=== PATIENT | female | born 1940 | race African-American/Black ===

== ENCOUNTER 2017-08-26 15:45 | Inpatient (IN) | payer MEDICARE, BC ==
[~2017-08-26] VITALS: Ht 165.1 cm; Wt 72.1 kg
[2017-08-26] MEDS ORDERED: LISINOPRIL (15:47)
[2017-08-26] MEDS ORDERED: SODIUM CHLORIDE 0.9% 1,000 ML IV ONE (16:19)
[2017-08-26 16:59] LABS: BASOPHILS % 0.4 % (0.0-2.0); EOSINOPHILS % 0.1 % (0.0-5.0); HEMOGLOBIN. 13.1 g/dL (12.0-16.0); LYMPHOCYTES % 16.1 % (20.0-50.0); MEAN CORPUSCULAR HEMOGLOBIN 26.6 pg (28.0-32.0); MEAN PLATELET VOLUME 7.5 fl (7.4-10.4); MONOCYTES % 11.8 % (2.0-8.0); NEUTROPHILS % 71.6 % (40.0-76.0); PLATELET 362 x1000/uL (130-400); RED BLOOD CELL COUNT 4.93 mill/uL (4.2-5.4); RED CELL DISTRIBUTION WIDTH 16.3 % (11.6-14.6)
[2017-08-26 17:05] LABS: PARTIAL THROMBOPLASTIN TIME 21.5 sec (23.4-31.0); PROTHROMBIN TIME 10.7 sec (9.4-11.6)
[2017-08-26 17:32] LABS: CHLORIDE 108 mEq/L (98-107)
[2017-08-26 17:42] LABS: CREATINE KINASE MB FRACTION 2.2 ng/mL (0.5-3.6)
[2017-08-26] MEDS ORDERED: ASPIRIN 81MG TABLET PO ONE (18:00)
[2017-08-26] MEDS ORDERED: CLONIDINE 0.1MG TABLET PO ONE (19:15)
[2017-08-26 21:00] VITALS: BP 143/83
[2017-08-26] MEDS ORDERED: ACETAMINOPHEN 325MG TABLET PO PRN (21:15)
[2017-08-26] MEDS ORDERED: ONDANSETRON HCL 4MG/2ML VIAL IV PRN (21:15)
[2017-08-26] MEDS ORDERED: CLOP75TA33 PO (21:50)
[2017-08-26] MEDS ORDERED: BENA20TA3 PO (21:50)
[2017-08-26 21:58] VITALS: BP 143/83
[2017-08-26] MEDS: ENOXAPARIN 40MG/0.4ML SYR SUBCUT SCH (22:36)
[2017-08-27 00:25] VITALS: BP 175/95
[2017-08-27 04:00] VITALS: BP 157/83
[2017-08-27] MEDS: HYDROCODONE/ACETAMINOPHEN 5/325MG TABLET PO PRN ×3 (05:23→22:39)
[2017-08-27 06:20] LABS: BASOPHILS % 0.7 % (0.0-2.0); EOSINOPHILS % 1.6 % (0.0-5.0); HEMATOCRIT. 38.5 % (36.0-48.0); HEMOGLOBIN. 12.9 g/dL (12.0-16.0); LYMPHOCYTES % 23.3 % (20.0-50.0); MEAN CORPUSCULAR VOLUME 77.5 fL (81.0-99.0); MEAN PLATELET VOLUME 7.6 fl (7.4-10.4); MONOCYTES % 8.8 % (2.0-8.0); NEUTROPHILS % 65.6 % (40.0-76.0); PLATELET 330 x1000/uL (130-400); RED BLOOD CELL COUNT 4.97 mill/uL (4.2-5.4); RED CELL DISTRIBUTION WIDTH 16.2 % (11.6-14.6)
[2017-08-27 07:18] LABS: CHLORIDE 112 mEq/L (98-107)
[2017-08-27 08:00] VITALS: BP 148/85
[2017-08-27] MEDS ORDERED: POTASSIUM CHLORIDE INJ 40 MEQ in DEXT 5% WATER 500 ML IV ONE (08:15)
[2017-08-27] MEDS: BENAZEPRIL 20MG TABLET PO SCH (08:49)
[2017-08-27] MEDS: CLOPIDOGREL 75MG TABLET PO SCH (08:49)
[2017-08-27] MEDS ORDERED: BENAZEPRIL 20MG TABLET PO SCH (09:00)
[2017-08-27] MEDS: KCL 20MEQ/100ML PREMIX 100 ML IV SCH ×2 (10:16→14:38)
[2017-08-27 12:00] VITALS: BP 142/85
[2017-08-27 12:09] LABS: PHOSPHORUS 3.2 mg/dL (2.5-4.9)
[2017-08-27 16:00] VITALS: BP 154/96
[2017-08-27 20:00] VITALS: BP_SYST 137; BP_SYST 142; BP_SYST 151; BP_DIAS 80; BP_DIAS 83; BP_DIAS 94
[2017-08-27] MEDS: ENOXAPARIN 40MG/0.4ML SYR SUBCUT SCH (20:56)
[2017-08-28] VITALS: BP 158/90
[2017-08-28] MEDS: CLONIDINE 0.1MG TABLET PO PRN ×2 (00:35→11:36)
[2017-08-28 04:00] VITALS: BP 129/78
[2017-08-28] MEDS: SODIUM CHLORIDE 0.45% 1,000 ML IV SCH (09:52)
[2017-08-28] MEDS: CLOPIDOGREL 75MG TABLET PO SCH (09:52)
[2017-08-28] MEDS: BENAZEPRIL 20MG TABLET PO SCH (09:56)
[2017-08-28 12:00] VITALS: BP 169/97
[2017-08-28 13:05] LABS: BASOPHILS % 0.8 % (0.0-2.0); EOSINOPHILS % 4.5 % (0.0-5.0); HEMOGLOBIN. 12.4 g/dL (12.0-16.0); LYMPHOCYTES % 28.6 % (20.0-50.0); MEAN CORPUSCULAR HEMOGLOBIN 27.1 pg (28.0-32.0); MEAN CORPUSCULAR VOLUME 76.5 fL (81.0-99.0); MEAN PLATELET VOLUME 7.5 fl (7.4-10.4); MONOCYTES % 12.8 % (2.0-8.0); NEUTROPHILS % 53.3 % (40.0-76.0); PLATELET 330 x1000/uL (130-400); RED BLOOD CELL COUNT 4.58 mill/uL (4.2-5.4); RED CELL DISTRIBUTION WIDTH 16.4 % (11.6-14.6)
[2017-08-28 13:14] LABS: AMMONIA 11 uMol/L (<32)
[2017-08-28 13:45] LABS: CHLORIDE 111 mEq/L (98-107)
[2017-08-28 13:50] LABS: PHOSPHORUS 3.1 mg/dL (2.5-4.9)
[2017-08-28] MEDS: HYDROCODONE/ACETAMINOPHEN 5/325MG TABLET PO PRN (14:58)
[2017-08-28 16:00] VITALS: BP 160/82
[2017-08-28] MEDS ORDERED: POTASSIUM CHLORIDE 20MEQ/PACKET PO NR (18:45)
[2017-08-28 20:00] VITALS: BP 151/83
[2017-08-28] MEDS: ENOXAPARIN 40MG/0.4ML SYR SUBCUT SCH (22:25)
[2017-08-29] VITALS: BP 135/77
[2017-08-29] MEDS: SODIUM CHLORIDE 0.45% 1,000 ML IV SCH ×2 (00:54→18:46)
[2017-08-29 04:00] VITALS: BP_SYST 142; BP_SYST 164; BP_DIAS 76; BP_DIAS 91
[2017-08-29 06:01] LABS: BASOPHILS % 0.7 % (0.0-2.0); EOSINOPHILS % 5.5 % (0.0-5.0); HEMATOCRIT. 37.2 % (36.0-48.0); HEMOGLOBIN. 12.6 g/dL (12.0-16.0); MEAN CORPUSCULAR HEMOGLOBIN 26.2 pg (28.0-32.0); MEAN CORPUSCULAR VOLUME 77.1 fL (81.0-99.0); MEAN PLATELET VOLUME 7.7 fl (7.4-10.4); MONOCYTES % 12.9 % (2.0-8.0); NEUTROPHILS % 51.9 % (40.0-76.0); PLATELET 352 x1000/uL (130-400); RED BLOOD CELL COUNT 4.83 mill/uL (4.2-5.4); RED CELL DISTRIBUTION WIDTH 16.9 % (11.6-14.6)
[2017-08-29 06:35] LABS: CHLORIDE 110 mEq/L (98-107)
[2017-08-29 06:43] LABS: PHOSPHORUS 3.6 mg/dL (2.5-4.9)
[2017-08-29 08:00] VITALS: BP_SYST 150; BP_SYST 159; BP_DIAS 83; BP_DIAS 92
[2017-08-29] MEDS: ZINC SULFATE 220 MG ( 50 ) CAPSULE PO SCH (08:55)
[2017-08-29] MEDS: ASCORBIC ACID 250 MG TABLET PO SCH ×2 (08:55→18:46)
[2017-08-29] MEDS: MULTIVITAMINS,THER W-MINERALS TABLET PO SCH (08:56)
[2017-08-29] MEDS: CLOPIDOGREL 75MG TABLET PO SCH (08:56)
[2017-08-29] MEDS: BENAZEPRIL 20MG TABLET PO SCH (08:58)
[2017-08-29] MEDS: HYDROCODONE/ACETAMINOPHEN 5/325MG TABLET PO PRN ×2 (08:59→23:51)
[2017-08-29] MEDS ORDERED: ZINC SULFATE 220 MG ( 50 ) CAPSULE PO SCH (09:00)
[2017-08-29] MEDS ORDERED: MULTIVITAMINS,THER W-MINERALS TABLET PO SCH (09:00)
[2017-08-29] MEDS: POTASSIUM CHLORIDE 20MEQ/PACKET PO SCH (10:51)
[2017-08-29 12:00] VITALS: BP_SYST 144; BP_SYST 152; BP_DIAS 76; BP_DIAS 77
[2017-08-29 16:00] VITALS: BP_SYST 150; BP_SYST 155; BP_DIAS 100; BP_DIAS 93
[2017-08-29 20:00] VITALS: BP 153/90
[2017-08-29] MEDS: ENOXAPARIN 40MG/0.4ML SYR SUBCUT SCH (20:21)
[2017-08-29 21:21] LABS: KETONES URINE NEGATIVE (NEGATIVE); LEUKOCYTE ESTERASE URINE 1+ (NEGATIVE); NITRITE URINE NEGATIVE (NEGATIVE); OCCULT BLOOD URINE 3+ (NEGATIVE); PROTEIN URINE NEGATIVE (NEGATIVE); SPECIFIC GRAVITY URINE 1.007 (1.005-1.030); UROBILINOGEN URINE 0.2 E.U./dL (0.2-1.0)
[2017-08-29 21:24] LABS: CLARITY URINE SLIGHTLY HAZY (CLEAR); COLOR URINE YELLOW (YELLOW)
[2017-08-29] MEDS: CLONIDINE 0.1MG TABLET PO PRN (23:50)
[2017-08-30] VITALS: BP_SYST 176; BP_SYST 179; BP_DIAS 106; BP_DIAS 94
[2017-08-30] MEDS: CLONIDINE 0.1MG TABLET PO PRN ×2 (06:28→12:34)
[2017-08-30 06:34] LABS: BASOPHILS % 0.8 % (0.0-2.0); EOSINOPHILS % 4.4 % (0.0-5.0); HEMATOCRIT. 36.1 % (36.0-48.0); HEMOGLOBIN. 12.5 g/dL (12.0-16.0); LYMPHOCYTES % 35.3 % (20.0-50.0); MEAN CORPUSCULAR HEMOGLOBIN 26.8 pg (28.0-32.0); MEAN CORPUSCULAR VOLUME 77.3 fL (81.0-99.0); MEAN PLATELET VOLUME 7.8 fl (7.4-10.4); NEUTROPHILS % 45.5 % (40.0-76.0); PLATELET 322 x1000/uL (130-400); RED BLOOD CELL COUNT 4.67 mill/uL (4.2-5.4); RED CELL DISTRIBUTION WIDTH 16.1 % (11.6-14.6)
[2017-08-30 08:00] VITALS: BP 147/97
[2017-08-30] MEDS: MULTIVITAMINS,THER W-MINERALS TABLET PO SCH (08:13)
[2017-08-30] MEDS: POTASSIUM CHLORIDE 20MEQ/PACKET PO SCH (08:13)
[2017-08-30] MEDS: ASCORBIC ACID 250 MG TABLET PO SCH ×2 (08:13→17:11)
[2017-08-30] MEDS: BENAZEPRIL 20MG TABLET PO SCH (08:13)
[2017-08-30] MEDS: ZINC SULFATE 220 MG ( 50 ) CAPSULE PO SCH (08:13)
[2017-08-30] MEDS: CLOPIDOGREL 75MG TABLET PO SCH (08:13)
[2017-08-30] MEDS ORDERED: LACTULOSE 20G/30ML UDC PO SCH (08:30)
[2017-08-30] MEDS ORDERED: BISACODYL 5MG TABLET PO SCH (08:30)
[2017-08-30 08:36] LABS: CHLORIDE 111 mEq/L (98-107)
[2017-08-30 08:51] LABS: PHOSPHORUS 3.9 mg/dL (2.5-4.9)
[2017-08-30 12:00] VITALS: BP_SYST 141; BP_SYST 163; BP_SYST 172; BP_DIAS 91; BP_DIAS 94; BP_DIAS 97
[2017-08-30] MEDS: HYDROCODONE/ACETAMINOPHEN 5/325MG TABLET PO PRN (12:46)
[2017-08-30 16:00] VITALS: BP 127/73
[2017-08-30 20:00] VITALS: BP 157/88
[2017-08-30] MEDS: ATORVASTATIN CALCIUM 40MG TABLET PO SCH (21:01)
[2017-08-30] MEDS: ENOXAPARIN 40MG/0.4ML SYR SUBCUT SCH (21:02)
[2017-08-31] VITALS (7 sets, daily range): BP systolic 111–171; BP diastolic 72–105
[2017-08-31] MEDS: CLONIDINE 0.1MG TABLET PO PRN (00:36)
[2017-08-31 07:13] LABS: BASOPHILS % 0.6 % (0.0-2.0); EOSINOPHILS % 1.6 % (0.0-5.0); HEMATOCRIT. 34.7 % (36.0-48.0); MEAN CORPUSCULAR HEMOGLOBIN 26.5 pg (28.0-32.0); MEAN CORPUSCULAR VOLUME 76.4 fL (81.0-99.0); MEAN PLATELET VOLUME 7.8 fl (7.4-10.4); MONOCYTES % 11.4 % (2.0-8.0); NEUTROPHILS % 64.4 % (40.0-76.0); PLATELET 339 x1000/uL (130-400); RED BLOOD CELL COUNT 4.54 mill/uL (4.2-5.4); RED CELL DISTRIBUTION WIDTH 16.5 % (11.6-14.6)
[2017-08-31 07:31] LABS: CHLORIDE 111 mEq/L (98-107)
[2017-08-31 07:47] LABS: LDL CHOLESTEROL 96 mg/dL (5-100)
[2017-08-31 07:49] LABS: HDL CHOLESTEROL 67 mg/dL (40-59)
[2017-08-31] MEDS: POTASSIUM CHLORIDE 20MEQ/PACKET PO SCH (08:36)
[2017-08-31] MEDS: CLOPIDOGREL 75MG TABLET PO SCH (08:36)
[2017-08-31] MEDS: ASCORBIC ACID 250 MG TABLET PO SCH ×2 (08:36→17:17)
[2017-08-31] MEDS: ZINC SULFATE 220 MG ( 50 ) CAPSULE PO SCH (08:36)
[2017-08-31] MEDS: BENAZEPRIL 20MG TABLET PO SCH (08:37)
[2017-08-31] MEDS: MULTIVITAMINS,THER W-MINERALS TABLET PO SCH (08:37)
[2017-08-31] MEDS ORDERED: CLOPIDOGREL 75MG TABLET PO SCH (09:00)
[2017-08-31] MEDS: LEVOFLOXACIN 250MG PREMIX 50 ML IV SCH (10:29)
[2017-08-31] MEDS ORDERED: MAGNESIUM 2 G PREMIX 50 ML IV SCH (11:00)
[2017-08-31] MEDS: ATORVASTATIN CALCIUM 40MG TABLET PO SCH (22:21)
[2017-08-31] MEDS: ENOXAPARIN 40MG/0.4ML SYR SUBCUT SCH (22:21)
[2017-09-01] VITALS: BP 133/74
[2017-09-01 04:00] VITALS: BP 140/81
[2017-09-01 08:00] VITALS: BP 146/94
[2017-09-01 10:01] LABS: BASOPHILS % 0.6 % (0.0-2.0); EOSINOPHILS % 5.3 % (0.0-5.0); HEMATOCRIT. 37.2 % (36.0-48.0); HEMOGLOBIN. 12.6 g/dL (12.0-16.0); LYMPHOCYTES % 22.9 % (20.0-50.0); MEAN CORPUSCULAR HEMOGLOBIN 26.3 pg (28.0-32.0); MEAN CORPUSCULAR VOLUME 77.3 fL (81.0-99.0); MONOCYTES % 11.8 % (2.0-8.0); NEUTROPHILS % 59.4 % (40.0-76.0); PLATELET 337 x1000/uL (130-400)
[2017-09-01] MEDS: BENAZEPRIL 20MG TABLET PO SCH (10:15)
[2017-09-01] MEDS: ASCORBIC ACID 250 MG TABLET PO SCH (10:15)
[2017-09-01] MEDS: ZINC SULFATE 220 MG ( 50 ) CAPSULE PO SCH (10:15)
[2017-09-01] MEDS: MULTIVITAMINS,THER W-MINERALS TABLET PO SCH (10:22)
[2017-09-01] MEDS: CLOPIDOGREL 75MG TABLET PO SCH (10:22)
[2017-09-01 10:23] LABS: CHLORIDE 112 mEq/L (98-107)
[2017-09-01] MEDS: POTASSIUM CHLORIDE 20MEQ/PACKET PO SCH (10:23)
[2017-09-01 10:30] LABS: PHOSPHORUS 3.2 mg/dL (2.5-4.9)
[2017-09-01] MEDS: LEVOFLOXACIN 250MG PREMIX 50 ML IV SCH (11:39)
[2017-09-01 12:00] VITALS: BP_SYST 132; BP_SYST 133; BP_SYST 143; BP_DIAS 100; BP_DIAS 84
[2017-09-01 16:51] VITALS: BP 159/93
[2017-09-02] MEDS ORDERED: LEVOFLOXACIN 250MG TABLET PO SCH (11:00)
== END 2017-09-01 17:45 | DRG 65 ==
LOC: ER 15:45 → OBSVTOIN 17:57 → 6WST 17:57 → ENRESERV 19:13 → 6WST 21:55 → 5WST 08-28 07:25
PROVIDERS: ADMIT Internal Medicine Nephrology; ATTEND Internal Medicine Nephrology
PROC: 4A00X4Z Measurement of Central Nervous Electrical Activity, External Approach (ICD-10-PCS; principal; 2017-08-30)
DX: I63.9 Cerebral infarction, unspecified (principal); E87.0 Hyperosmolality and hypernatremia; G40.909 Epilepsy, unspecified, not intractable, without status epilepticus; B69.0 Cysticercosis of central nervous system; N39.0 Urinary tract infection, site not specified; S22.32XA Fracture of one rib, left side, initial encounter for closed fracture; W19.XXXA Unspecified fall, initial encounter; E87.6 Hypokalemia; I10 Essential (primary) hypertension; B96.20 Unspecified Escherichia coli [E. coli] as the cause of diseases classified elsewhere; K59.00 Constipation, unspecified; R35.1 Nocturia; B95.2 Enterococcus as the cause of diseases classified elsewhere; J45.909 Unspecified asthma, uncomplicated; R27.0 Ataxia, unspecified; H93.90 Unspecified disorder of ear, unspecified ear; F45.41 Pain disorder exclusively related to psychological factors; J32.9 Chronic sinusitis, unspecified; E78.5 Hyperlipidemia, unspecified; F17.210 Nicotine dependence, cigarettes, uncomplicated; Z88.0 Allergy status to penicillin; Z82.49 Family history of ischemic heart disease and other diseases of the circulatory system; Y92.091 Bathroom in other non-institutional residence as the place of occurrence of the external cause; Z86.73 Personal history of transient ischemic attack (TIA), and cerebral infarction without residual deficits; Z79.02 Long term (current) use of antithrombotics/antiplatelets; Z79.899 Other long term (current) drug therapy; Y93.89 Activity, other specified; Y99.8 Other external cause status
CPT/HCPCS: 36415; 70450; 70551; 71045; 71111; 72110; 80048; 80053; 80061; 81003; 82140; 82553; 83735; 83930; 83935; 84100; 84132; 84133; 84443; 84484; 85025; 85379; 85610; 85730; 87040; 87077; 87086; 87186; 92610; 93005; 93306; 93880; 93970; 97112; 97163; 97166; 97530; C1893; J1650; J1956; J3475; J3480; J7030; J7040; J7050; A4315

== ENCOUNTER 2017-09-01 18:01 | Inpatient (IN) | payer MEDICARE, BC ==
[~2017-09-01] VITALS: Ht 165.1 cm; Wt 71.7 kg
[2017-09-01 18:00] VITALS: BP 158/96
[~2017-09-01 18:01] MED LIST: BENA20TA3 PO; CLOP75TA33 PO
[2017-09-01] MEDS ORDERED: BISACODYL 10MG SUPP PR PRN (18:30)
[2017-09-01] MEDS ORDERED: NA PHOS,M-B/NA PHOS,DI-BA ENEMA 118ML PR PRN (18:30)
[2017-09-01] MEDS ORDERED: DOCUSATE SODIUM 100MG CAPSULE PO SCH (18:30)
[2017-09-01] MEDS ORDERED: ONDANSETRON HCL 4MG TABLET PO PRN (18:45)
[2017-09-01 20:00] VITALS: BP 147/76
[2017-09-01] MEDS: ATORVASTATIN CALCIUM 40MG TABLET PO SCH (22:04)
[2017-09-01] MEDS: ENOXAPARIN 40MG/0.4ML SYR SUBCUT SCH (22:04)
[2017-09-01] MEDS: DOCUSATE SODIUM 100MG CAPSULE PO SCH (22:04)
[2017-09-02 06:48] LABS: HEMATOCRIT. 36.8 % (36.0-48.0); HEMOGLOBIN. 12.7 g/dL (12.0-16.0); MEAN CORPUSCULAR HEMOGLOBIN 26.1 pg (28.0-32.0); MEAN CORPUSCULAR VOLUME 75.8 fL (81.0-99.0); MEAN PLATELET VOLUME 7.7 fl (7.4-10.4); PLATELET 365 x1000/uL (130-400); RED BLOOD CELL COUNT 4.86 mill/uL (4.2-5.4); RED CELL DISTRIBUTION WIDTH 16.3 % (11.6-14.6)
[2017-09-02 07:14] LABS: CHLORIDE 113 mEq/L (98-107)
[2017-09-02 08:00] VITALS: BP 131/94
[2017-09-02 09:46] LABS: ATYPICAL LYMPHOCYTES 1; PLATELET ESTIMATE NORMAL
[2017-09-02] MEDS: DOCUSATE SODIUM 100MG CAPSULE PO SCH ×2 (09:49→16:53)
[2017-09-02] MEDS: MULTIVITAMINS,THER W-MINERALS TABLET PO SCH (09:49)
[2017-09-02] MEDS: ZINC SULFATE 220 MG ( 50 ) CAPSULE PO SCH (09:49)
[2017-09-02] MEDS: NITROFURANTOIN 100MG M/M CAPSULE PO SCH ×2 (09:49→21:02)
[2017-09-02] MEDS: CLOPIDOGREL 75MG TABLET PO SCH (09:50)
[2017-09-02] MEDS: BENAZEPRIL 20MG TABLET PO SCH (09:50)
[2017-09-02] MEDS: ASCORBIC ACID 250 MG TABLET PO SCH ×2 (09:50→16:53)
[2017-09-02] MEDS: POTASSIUM CHLORIDE 20MEQ/PACKET PO SCH (09:51)
[2017-09-02] MEDS ORDERED: LEVOFLOXACIN 250MG TABLET PO SCH (11:00)
[2017-09-02] MEDS: ACETAMINOPHEN 325MG TABLET PO PRN (11:53)
[2017-09-02 20:00] VITALS: BP_SYST 140; BP_SYST 146; BP_SYST 151; BP_DIAS 102; BP_DIAS 78; BP_DIAS 88
[2017-09-02] MEDS: ENOXAPARIN 40MG/0.4ML SYR SUBCUT SCH (21:02)
[2017-09-02] MEDS: ATORVASTATIN CALCIUM 40MG TABLET PO SCH (21:02)
[2017-09-03] MEDS: DOCUSATE SODIUM 100MG CAPSULE PO SCH ×2 (08:19→17:12)
[2017-09-03] MEDS: POTASSIUM CHLORIDE 20MEQ/PACKET PO SCH (08:22)
[2017-09-03] MEDS: ASCORBIC ACID 250 MG TABLET PO SCH ×2 (08:23→17:12)
[2017-09-03] MEDS: ZINC SULFATE 220 MG ( 50 ) CAPSULE PO SCH (08:23)
[2017-09-03] MEDS: BENAZEPRIL 20MG TABLET PO SCH ×2 (08:24→21:28)
[2017-09-03] MEDS: NITROFURANTOIN 100MG M/M CAPSULE PO SCH ×2 (08:24→21:28)
[2017-09-03] MEDS: CLOPIDOGREL 75MG TABLET PO SCH (08:24)
[2017-09-03] MEDS: MULTIVITAMINS,THER W-MINERALS TABLET PO SCH (08:24)
[2017-09-03 08:31] VITALS: BP 163/98
[2017-09-03 20:00] VITALS: BP_SYST 140; BP_SYST 144; BP_SYST 166; BP_DIAS 80; BP_DIAS 82; BP_DIAS 89
[2017-09-03] MEDS: ATORVASTATIN CALCIUM 40MG TABLET PO SCH (21:27)
[2017-09-03] MEDS: ENOXAPARIN 40MG/0.4ML SYR SUBCUT SCH (21:29)
[2017-09-04 07:00] LABS: BASOPHILS % 0.6 % (0.0-2.0); EOSINOPHILS % 4.1 % (0.0-5.0); HEMATOCRIT. 35.4 % (36.0-48.0); HEMOGLOBIN. 12.3 g/dL (12.0-16.0); MEAN CORPUSCULAR HEMOGLOBIN 26.5 pg (28.0-32.0); MEAN PLATELET VOLUME 7.6 fl (7.4-10.4); MONOCYTES % 14.2 % (2.0-8.0); NEUTROPHILS % 46.1 % (40.0-76.0); PLATELET 376 x1000/uL (130-400); RED BLOOD CELL COUNT 4.65 mill/uL (4.2-5.4); RED CELL DISTRIBUTION WIDTH 16.1 % (11.6-14.6)
[2017-09-04 07:45] VITALS: BP 138/84
[2017-09-04] MEDS ORDERED: POTASSIUM CHLORIDE 20MEQ/PACKET PO NR (08:30)
[2017-09-04 09:00] VITALS: BP_SYST 140; BP_SYST 146; BP_DIAS 100; BP_DIAS 94
[2017-09-04] MEDS: DOCUSATE SODIUM 100MG CAPSULE PO SCH ×2 (09:33→16:20)
[2017-09-04] MEDS: NITROFURANTOIN 100MG M/M CAPSULE PO SCH ×2 (09:33→22:21)
[2017-09-04] MEDS: ZINC SULFATE 220 MG ( 50 ) CAPSULE PO SCH (09:34)
[2017-09-04] MEDS: BENAZEPRIL 20MG TABLET PO SCH ×2 (09:34→22:21)
[2017-09-04] MEDS: MULTIVITAMINS,THER W-MINERALS TABLET PO SCH (09:34)
[2017-09-04] MEDS: CLOPIDOGREL 75MG TABLET PO SCH (09:34)
[2017-09-04] MEDS: ASCORBIC ACID 250 MG TABLET PO SCH ×2 (09:34→16:20)
[2017-09-04] MEDS: POTASSIUM CHLORIDE 20MEQ/PACKET PO SCH (09:48)
[2017-09-04 15:30] VITALS: BP_SYST 136; BP_SYST 141; BP_SYST 164; BP_DIAS 87; BP_DIAS 96; BP_DIAS 97
[2017-09-04] MEDS: CLONIDINE 0.1MG TABLET PO PRN (16:20)
[2017-09-04 18:30] VITALS: BP_SYST 150; BP_SYST 151; BP_SYST 152; BP_DIAS 85; BP_DIAS 93; BP_DIAS 98
[2017-09-04] MEDS: ATORVASTATIN CALCIUM 40MG TABLET PO SCH (22:21)
[2017-09-04] MEDS: ENOXAPARIN 40MG/0.4ML SYR SUBCUT SCH (22:21)
[2017-09-05 06:33] LABS: BASOPHILS % 0.8 % (0.0-2.0); EOSINOPHILS % 3.4 % (0.0-5.0); HEMATOCRIT. 35.2 % (36.0-48.0); HEMOGLOBIN. 12.1 g/dL (12.0-16.0); MEAN CORPUSCULAR HEMOGLOBIN 26.2 pg (28.0-32.0); MEAN CORPUSCULAR VOLUME 76.4 fL (81.0-99.0); MEAN PLATELET VOLUME 7.4 fl (7.4-10.4); MONOCYTES % 14.7 % (2.0-8.0); NEUTROPHILS % 49.1 % (40.0-76.0); PLATELET 375 x1000/uL (130-400); RED BLOOD CELL COUNT 4.61 mill/uL (4.2-5.4); RED CELL DISTRIBUTION WIDTH 16.5 % (11.6-14.6)
[2017-09-05 07:22] LABS: CHLORIDE 113 mEq/L (98-107)
[2017-09-05 08:00] VITALS: BP 143/86
[2017-09-05] MEDS: MULTIVITAMINS,THER W-MINERALS TABLET PO SCH (08:56)
[2017-09-05] MEDS: ASCORBIC ACID 250 MG TABLET PO SCH ×2 (08:56→18:00)
[2017-09-05] MEDS: NITROFURANTOIN 100MG M/M CAPSULE PO SCH ×2 (08:56→22:20)
[2017-09-05] MEDS: DOCUSATE SODIUM 100MG CAPSULE PO SCH ×2 (08:56→18:00)
[2017-09-05] MEDS: POTASSIUM CHLORIDE 20MEQ/PACKET PO SCH (08:57)
[2017-09-05] MEDS: BENAZEPRIL 20MG TABLET PO SCH ×2 (08:57→22:21)
[2017-09-05] MEDS: CLOPIDOGREL 75MG TABLET PO SCH (08:57)
[2017-09-05] MEDS: ZINC SULFATE 220 MG ( 50 ) CAPSULE PO SCH (08:57)
[2017-09-05 20:00] VITALS: BP 121/85
[2017-09-05] MEDS: ENOXAPARIN 40MG/0.4ML SYR SUBCUT SCH (22:21)
[2017-09-05] MEDS: ATORVASTATIN CALCIUM 40MG TABLET PO SCH (22:21)
[2017-09-06 06:42] LABS: BASOPHILS % 0.6 % (0.0-2.0); EOSINOPHILS % 4.3 % (0.0-5.0); HEMATOCRIT. 35.6 % (36.0-48.0); HEMOGLOBIN. 12.3 g/dL (12.0-16.0); LYMPHOCYTES % 36.2 % (20.0-50.0); MEAN CORPUSCULAR HEMOGLOBIN 26.4 pg (28.0-32.0); MEAN CORPUSCULAR VOLUME 76.3 fL (81.0-99.0); MEAN PLATELET VOLUME 7.7 fl (7.4-10.4); MONOCYTES % 14.1 % (2.0-8.0); NEUTROPHILS % 44.8 % (40.0-76.0); PLATELET 384 x1000/uL (130-400); RED BLOOD CELL COUNT 4.66 mill/uL (4.2-5.4); RED CELL DISTRIBUTION WIDTH 16.3 % (11.6-14.6)
[2017-09-06 08:00] VITALS: BP 134/81
[2017-09-06] MEDS: NITROFURANTOIN 100MG M/M CAPSULE PO SCH ×2 (10:03→21:15)
[2017-09-06] MEDS: ASCORBIC ACID 250 MG TABLET PO SCH ×2 (10:03→18:11)
[2017-09-06] MEDS: BENAZEPRIL 20MG TABLET PO SCH ×2 (10:04→21:16)
[2017-09-06] MEDS: ZINC SULFATE 220 MG ( 50 ) CAPSULE PO SCH (10:04)
[2017-09-06] MEDS: MULTIVITAMINS,THER W-MINERALS TABLET PO SCH (10:04)
[2017-09-06] MEDS: POTASSIUM CHLORIDE 20MEQ/PACKET PO SCH (10:05)
[2017-09-06] MEDS: DOCUSATE SODIUM 100MG CAPSULE PO SCH ×2 (10:05→18:11)
[2017-09-06] MEDS: CLOPIDOGREL 75MG TABLET PO SCH (10:05)
[2017-09-06 20:00] VITALS: BP 164/86
[2017-09-06 20:45] VITALS: BP 149/88
[2017-09-06] MEDS: ATORVASTATIN CALCIUM 40MG TABLET PO SCH (21:15)
[2017-09-06] MEDS: ENOXAPARIN 40MG/0.4ML SYR SUBCUT SCH (21:16)
[2017-09-07 08:22] VITALS: BP 152/87
[2017-09-07] MEDS: ZINC SULFATE 220 MG ( 50 ) CAPSULE PO SCH (09:00)
[2017-09-07] MEDS: DOCUSATE SODIUM 100MG CAPSULE PO SCH ×2 (10:44→17:00)
[2017-09-07] MEDS: AMLODIPINE 2.5MG TABLET PO SCH (10:44)
[2017-09-07] MEDS: MULTIVITAMINS,THER W-MINERALS TABLET PO SCH (10:45)
[2017-09-07] MEDS: NITROFURANTOIN 100MG M/M CAPSULE PO SCH ×2 (10:45→22:10)
[2017-09-07] MEDS: BENAZEPRIL 20MG TABLET PO SCH ×2 (10:46→22:10)
[2017-09-07] MEDS: CLOPIDOGREL 75MG TABLET PO SCH (10:46)
[2017-09-07] MEDS: ASCORBIC ACID 250 MG TABLET PO SCH ×2 (10:46→18:25)
[2017-09-07] MEDS: POTASSIUM CHLORIDE 20MEQ/PACKET PO SCH (10:47)
[2017-09-07 20:00] VITALS: BP 157/93
[2017-09-07] MEDS: ATORVASTATIN CALCIUM 40MG TABLET PO SCH (22:09)
[2017-09-07] MEDS: ENOXAPARIN 40MG/0.4ML SYR SUBCUT SCH (22:10)
[2017-09-07] MEDS: ACETAMINOPHEN 325MG TABLET PO PRN (22:49)
[2017-09-08 08:00] VITALS: BP 146/88
[2017-09-08 08:08] LABS: CHLORIDE 108 mEq/L (98-107)
[2017-09-08] MEDS: DOCUSATE SODIUM 100MG CAPSULE PO SCH ×2 (10:27→19:01)
[2017-09-08] MEDS: POTASSIUM CHLORIDE 20MEQ/PACKET PO SCH (10:28)
[2017-09-08] MEDS: ZINC SULFATE 220 MG ( 50 ) CAPSULE PO SCH (10:30)
[2017-09-08] MEDS: ASCORBIC ACID 250 MG TABLET PO SCH ×2 (10:30→19:01)
[2017-09-08] MEDS: CLOPIDOGREL 75MG TABLET PO SCH (10:30)
[2017-09-08] MEDS: MULTIVITAMINS,THER W-MINERALS TABLET PO SCH (10:31)
[2017-09-08] MEDS: BENAZEPRIL 20MG TABLET PO SCH ×2 (10:31→22:14)
[2017-09-08] MEDS: NITROFURANTOIN 100MG M/M CAPSULE PO SCH ×2 (10:31→22:15)
[2017-09-08] MEDS: AMLODIPINE 2.5MG TABLET PO SCH (10:32)
[2017-09-08 13:21] LABS: EOSINOPHILS % 2.4 % (0.0-5.0); HEMATOCRIT. 37.4 % (36.0-48.0); HEMOGLOBIN. 12.9 g/dL (12.0-16.0); LYMPHOCYTES % 35.1 % (20.0-50.0); MEAN CORPUSCULAR HEMOGLOBIN 26.1 pg (28.0-32.0); MEAN CORPUSCULAR VOLUME 75.8 fL (81.0-99.0); MEAN PLATELET VOLUME 7.1 fl (7.4-10.4); MONOCYTES % 13.6 % (2.0-8.0); NEUTROPHILS % 47.9 % (40.0-76.0); PLATELET 405 x1000/uL (130-400); RED BLOOD CELL COUNT 4.94 mill/uL (4.2-5.4)
[2017-09-08 20:00] VITALS: BP 152/94
[2017-09-08] MEDS: ATORVASTATIN CALCIUM 40MG TABLET PO SCH (22:14)
[2017-09-08] MEDS: ENOXAPARIN 40MG/0.4ML SYR SUBCUT SCH (22:16)
[2017-09-09 08:00] VITALS: BP 165/83
[2017-09-09] MEDS: CLONIDINE 0.1MG TABLET PO PRN (09:10)
[2017-09-09] MEDS: ZINC SULFATE 220 MG ( 50 ) CAPSULE PO SCH (09:10)
[2017-09-09] MEDS: MULTIVITAMINS,THER W-MINERALS TABLET PO SCH (09:10)
[2017-09-09] MEDS: NITROFURANTOIN 100MG M/M CAPSULE PO SCH (09:10)
[2017-09-09] MEDS: CLOPIDOGREL 75MG TABLET PO SCH (09:10)
[2017-09-09] MEDS: DOCUSATE SODIUM 100MG CAPSULE PO SCH ×2 (09:10→17:57)
[2017-09-09] MEDS: POTASSIUM CHLORIDE 20MEQ/PACKET PO SCH (09:11)
[2017-09-09] MEDS: AMLODIPINE 2.5MG TABLET PO SCH ×2 (09:11→20:58)
[2017-09-09] MEDS: ASCORBIC ACID 250 MG TABLET PO SCH ×2 (09:11→17:57)
[2017-09-09] MEDS: BENAZEPRIL 20MG TABLET PO SCH ×2 (09:15→21:07)
[2017-09-09 20:00] VITALS: BP 140/89
[2017-09-09] MEDS: ATORVASTATIN CALCIUM 40MG TABLET PO SCH (20:57)
[2017-09-09] MEDS: ENOXAPARIN 40MG/0.4ML SYR SUBCUT SCH (20:57)
[2017-09-10 08:00] VITALS: BP 124/68
[2017-09-10] MEDS: BENAZEPRIL 20MG TABLET PO SCH ×2 (09:00→21:00)
[2017-09-10] MEDS: CLOPIDOGREL 75MG TABLET PO SCH (09:35)
[2017-09-10] MEDS: ASCORBIC ACID 250 MG TABLET PO SCH ×2 (09:35→17:40)
[2017-09-10] MEDS: DOCUSATE SODIUM 100MG CAPSULE PO SCH ×2 (09:35→17:40)
[2017-09-10] MEDS: POTASSIUM CHLORIDE 20MEQ/PACKET PO SCH (09:35)
[2017-09-10] MEDS: ZINC SULFATE 220 MG ( 50 ) CAPSULE PO SCH (09:35)
[2017-09-10] MEDS: MULTIVITAMINS,THER W-MINERALS TABLET PO SCH (09:35)
[2017-09-10] MEDS: AMLODIPINE 2.5MG TABLET PO SCH ×2 (09:39→21:24)
[2017-09-10 20:00] VITALS: BP 124/79
[2017-09-10] MEDS: ATORVASTATIN CALCIUM 40MG TABLET PO SCH (21:25)
[2017-09-10] MEDS: ENOXAPARIN 40MG/0.4ML SYR SUBCUT SCH (21:26)
[2017-09-11 06:59] LABS: CHLORIDE 108 mEq/L (98-107)
[2017-09-11 07:47] LABS: BASOPHILS % 0.8 % (0.0-2.0); EOSINOPHILS % 2.8 % (0.0-5.0); HEMATOCRIT. 34.8 % (36.0-48.0); HEMOGLOBIN. 12.1 g/dL (12.0-16.0); LYMPHOCYTES % 38.4 % (20.0-50.0); MEAN CORPUSCULAR HEMOGLOBIN 26.3 pg (28.0-32.0); MEAN CORPUSCULAR VOLUME 75.7 fL (81.0-99.0); MEAN PLATELET VOLUME 7.9 fl (7.4-10.4); PLATELET 368 x1000/uL (130-400); RED BLOOD CELL COUNT 4.59 mill/uL (4.2-5.4); RED CELL DISTRIBUTION WIDTH 16.2 % (11.6-14.6)
[2017-09-11 08:00] VITALS: BP 125/79
[2017-09-11] MEDS: BENAZEPRIL 20MG TABLET PO SCH ×2 (09:00→21:00)
[2017-09-11] MEDS: MULTIVITAMINS,THER W-MINERALS TABLET PO SCH (09:20)
[2017-09-11] MEDS: CLOPIDOGREL 75MG TABLET PO SCH (09:20)
[2017-09-11] MEDS: POTASSIUM CHLORIDE 20MEQ/PACKET PO SCH (09:20)
[2017-09-11] MEDS: ZINC SULFATE 220 MG ( 50 ) CAPSULE PO SCH (09:20)
[2017-09-11] MEDS: ASCORBIC ACID 250 MG TABLET PO SCH ×2 (09:23→18:28)
[2017-09-11] MEDS: AMLODIPINE 2.5MG TABLET PO SCH ×2 (09:24→21:57)
[2017-09-11] MEDS: DOCUSATE SODIUM 100MG CAPSULE PO SCH ×2 (09:26→18:28)
[2017-09-11] MEDS ORDERED: LACTULOSE 20G/30ML UDC PO PRN (18:15)
[2017-09-11 20:00] VITALS: BP 124/75
[2017-09-11] MEDS: ATORVASTATIN CALCIUM 40MG TABLET PO SCH (21:54)
[2017-09-11] MEDS: ENOXAPARIN 40MG/0.4ML SYR SUBCUT SCH (21:55)
[2017-09-12 08:00] VITALS: BP 149/87
[2017-09-12] MEDS: DOCUSATE SODIUM 100MG CAPSULE PO SCH ×2 (09:00→18:19)
[2017-09-12] MEDS: ASCORBIC ACID 250 MG TABLET PO SCH ×2 (09:00→18:19)
[2017-09-12] MEDS: ZINC SULFATE 220 MG ( 50 ) CAPSULE PO SCH (09:00)
[2017-09-12] MEDS: AMLODIPINE 2.5MG TABLET PO SCH ×2 (09:03→21:16)
[2017-09-12] MEDS: CLOPIDOGREL 75MG TABLET PO SCH (09:04)
[2017-09-12] MEDS: MULTIVITAMINS,THER W-MINERALS TABLET PO SCH (09:04)
[2017-09-12] MEDS: BENAZEPRIL 20MG TABLET PO SCH ×2 (09:04→21:16)
[2017-09-12] MEDS: POTASSIUM CHLORIDE 20MEQ TABLET SR PO SCH (09:11)
[2017-09-12 20:00] VITALS: BP 133/73
[2017-09-12] MEDS: ENOXAPARIN 40MG/0.4ML SYR SUBCUT SCH (21:16)
[2017-09-12] MEDS: ATORVASTATIN CALCIUM 40MG TABLET PO SCH (21:16)
[2017-09-13 08:16] VITALS: BP 164/88
[2017-09-13] MEDS: POTASSIUM CHLORIDE 20MEQ TABLET SR PO SCH (09:24)
[2017-09-13] MEDS: MULTIVITAMINS,THER W-MINERALS TABLET PO SCH (09:25)
[2017-09-13] MEDS: DOCUSATE SODIUM 100MG CAPSULE PO SCH ×2 (09:25→17:39)
[2017-09-13] MEDS: CLOPIDOGREL 75MG TABLET PO SCH (09:25)
[2017-09-13] MEDS: CLONIDINE 0.1MG TABLET PO PRN (09:25)
[2017-09-13] MEDS: ZINC SULFATE 220 MG ( 50 ) CAPSULE PO SCH (09:25)
[2017-09-13] MEDS: ASCORBIC ACID 250 MG TABLET PO SCH ×2 (09:26→17:39)
[2017-09-13] MEDS: BENAZEPRIL 20MG TABLET PO SCH ×2 (09:26→21:01)
[2017-09-13] MEDS: AMLODIPINE 2.5MG TABLET PO SCH (09:26)
[2017-09-13 20:00] VITALS: BP 132/80
[2017-09-13] MEDS: ATORVASTATIN CALCIUM 40MG TABLET PO SCH (21:00)
[2017-09-13] MEDS: ENOXAPARIN 40MG/0.4ML SYR SUBCUT SCH (21:01)
[2017-09-13] MEDS: AMLODIPINE 5MG TABLET PO SCH (21:01)
[2017-09-14 08:00] VITALS: BP 121/82
[2017-09-14] MEDS: ZINC SULFATE 220 MG ( 50 ) CAPSULE PO SCH (09:17)
[2017-09-14] MEDS: POTASSIUM CHLORIDE 20MEQ TABLET SR PO SCH (09:17)
[2017-09-14] MEDS: AMLODIPINE 5MG TABLET PO SCH ×2 (09:17→20:29)
[2017-09-14] MEDS: CLOPIDOGREL 75MG TABLET PO SCH (09:17)
[2017-09-14] MEDS: DOCUSATE SODIUM 100MG CAPSULE PO SCH ×2 (09:18→17:45)
[2017-09-14] MEDS: MULTIVITAMINS,THER W-MINERALS TABLET PO SCH (09:18)
[2017-09-14] MEDS: ASCORBIC ACID 250 MG TABLET PO SCH ×2 (09:18→17:45)
[2017-09-14] MEDS: BENAZEPRIL 20MG TABLET PO SCH ×2 (09:25→20:29)
[2017-09-14 12:05] LABS: BASOPHILS % 0.9 % (0.0-2.0); EOSINOPHILS % 2.4 % (0.0-5.0); HEMATOCRIT. 37.3 % (36.0-48.0); HEMOGLOBIN. 12.8 g/dL (12.0-16.0); LYMPHOCYTES % 34.6 % (20.0-50.0); MEAN CORPUSCULAR HEMOGLOBIN 26.2 pg (28.0-32.0); MEAN CORPUSCULAR VOLUME 76.5 fL (81.0-99.0); MEAN PLATELET VOLUME 7.8 fl (7.4-10.4); MONOCYTES % 12.2 % (2.0-8.0); NEUTROPHILS % 49.9 % (40.0-76.0); PLATELET 356 x1000/uL (130-400); RED BLOOD CELL COUNT 4.88 mill/uL (4.2-5.4); RED CELL DISTRIBUTION WIDTH 16.5 % (11.6-14.6)
[2017-09-14 13:02] LABS: CHLORIDE 109 mEq/L (98-107)
[2017-09-14 20:00] VITALS: BP 127/71
[2017-09-14] MEDS: ATORVASTATIN CALCIUM 40MG TABLET PO SCH (20:28)
[2017-09-14] MEDS: ENOXAPARIN 40MG/0.4ML SYR SUBCUT SCH (20:29)
[2017-09-15 08:00] VITALS: BP 164/98
[2017-09-15] MEDS: CLOPIDOGREL 75MG TABLET PO SCH (08:55)
[2017-09-15] MEDS: MULTIVITAMINS,THER W-MINERALS TABLET PO SCH (08:55)
[2017-09-15] MEDS: POTASSIUM CHLORIDE 20MEQ TABLET SR PO SCH (08:55)
[2017-09-15] MEDS: DOCUSATE SODIUM 100MG CAPSULE PO SCH (08:55)
[2017-09-15] MEDS: BENAZEPRIL 20MG TABLET PO SCH (08:56)
[2017-09-15] MEDS: ASCORBIC ACID 250 MG TABLET PO SCH (08:56)
[2017-09-15] MEDS: AMLODIPINE 5MG TABLET PO SCH (08:56)
[2017-09-15] MEDS: ZINC SULFATE 220 MG ( 50 ) CAPSULE PO SCH (08:56)
[2017-09-15 11:10] VITALS: BP 139/87
[2017-09-15 13:39] VITALS: BP 139/87
== END 2017-09-15 14:10 | disposition home health service (06) | DRG 65 ==
PROVIDERS: ADMIT Psychiatry & Neurology Neurology; ATTEND Internal Medicine Nephrology
DX: I63.9 Cerebral infarction, unspecified (principal); N39.0 Urinary tract infection, site not specified; E87.5 Hyperkalemia; S22.32XA Fracture of one rib, left side, initial encounter for closed fracture; I10 Essential (primary) hypertension; B96.20 Unspecified Escherichia coli [E. coli] as the cause of diseases classified elsewhere; R33.9 Retention of urine, unspecified; F17.210 Nicotine dependence, cigarettes, uncomplicated; F41.9 Anxiety disorder, unspecified; K59.00 Constipation, unspecified; M19.90 Unspecified osteoarthritis, unspecified site; R55 Syncope and collapse; F39 Unspecified mood [affective] disorder; R27.0 Ataxia, unspecified; R53.81 Other malaise; X58.XXXA Exposure to other specified factors, initial encounter; Y93.89 Activity, other specified; Y92.89 Other specified places as the place of occurrence of the external cause; Y99.8 Other external cause status; Z82.49 Family history of ischemic heart disease and other diseases of the circulatory system
CPT/HCPCS: 36415; 80048; 80053; 85025; 92523; 92610; 97110; 97112; 97116; 97127; 97163; 97167; 97530; 97535; A6261; J1650